=== PATIENT | female | born 1965 | race African-American/Black ===

== ENCOUNTER 2021-09-19 04:45 | Day surgery (SDC) | payer OTHER ==
[2021-09-17 16:20] VITALS: BMI 31.9
[2021-09-19 08:27] VITALS: TEMP 97.8
[2021-09-19 09:36] VITALS: BP 128/63; PULSE 62
== END 2021-09-19 09:50 | disposition home or self-care (01) ==
LOC: JASU-ENDO 04:45
PROVIDERS: ATTEND Internal Medicine Gastroenterology
PROC: 0DJD8ZZ Inspection of Lower Intestinal Tract, Via Natural or Artificial Opening Endoscopic (ICD-10-PCS; principal; 2021-09-19 08:00)
DX: Z12.11 Encounter for screening for malignant neoplasm of colon (principal); K64.8 Other hemorrhoids; K59.89 Other specified functional intestinal disorders; Z86.010 Personal history of colon polyps

== ENCOUNTER 2022-11-06 04:07 | Day surgery (SDC) | payer OTHER ==
[2022-11-04 12:48] VITALS: BMI 32.4
[2022-11-06 09:33] VITALS: BP 129/65; PULSE 61; RESP 18; TEMP 98
== END 2022-11-06 09:45 | disposition home or self-care (01) ==
LOC: JASU-ENDO 04:07
PROVIDERS: ATTEND Internal Medicine Gastroenterology
PROC: 0DB78ZX Excision of Stomach, Pylorus, Via Natural or Artificial Opening Endoscopic, Diagnostic (ICD-10-PCS; 2022-11-06)
PROC: 0DB98ZX Excision of Duodenum, Via Natural or Artificial Opening Endoscopic, Diagnostic (ICD-10-PCS; principal; 2022-11-06 08:00)
DX: K29.70 Gastritis, unspecified, without bleeding (principal); K30 Functional dyspepsia
CPT/HCPCS: 88305-TC; 88342-TC